=== PATIENT | female | born 1985 | race Caucasian/White ===

== ENCOUNTER 2016-10-30 09:17 | Day surgery (SDC) | payer BC ==
[~2016-10-30] VITALS: Ht 162.6 cm; Wt 74.8 kg
--- NOTE | ~2016-10-30 | OP ---
PATIENT NAME: HELENA RODRÍGUEZ MEDICAL RECORD: [id number] :83 LOCATION:[facility] ADMISSION DATE: SURGEON: SOPHIA BAUTISTA MD DATE OF OPERATION: 10/30/2016 PREOPERATIVE DIAGNOSIS: Chronic tonsillitis. POSTOPERATIVE DIAGNOSIS: Chronic tonsillitis. PROCEDURE: Tonsillectomy. SURGEON: Sophia Bautista MD ANESTHESIA: General orotracheal. BLOOD LOSS: Less than 5 cc. SPECIMENS: Right and left tonsil. COMPLICATIONS: None. DISPOSITION: Recovery stable. DESCRIPTION OF PROCEDURE: She was brought to the operating room and placed in supine position, sedated and intubated by anesthesia. The table was turned 90 degrees. Head drapes applied and she was positioned for tonsillectomy. Using a headlight, a Lorenzo-Sae mouth gag was carefully inserted and elevated on a towel on the chest. The palate was examined and palpated, it was normal. The palate was retracted. A mirror was used to examine the nasopharynx. There was no significant adenoid tissue. The choanae and eustachian tube orifices were normal bilaterally. The right tonsil was grasped at the superior pole with a straight Allis clamp. There was a massive amount of caseous material. A spatula tip cautery on a setting of 9 was used to dissect out the tonsil along its capsule, preserving the anterior and posterior tonsillar pillars. The left tonsil was removed in the same fashion. Then, both sides of the nose were irrigated with saline. The pharynx was suctioned. The tonsillar fossae were agitated. Suction cautery on a setting of 20 was used to control minimal oozing. With the field clean and dry, she was awakened, extubated, and transported to recovery in good condition. No complications. TRANSINT:[id number] Voice Confirmation ID: [id number] DOCUMENT ID: [id number] SOPHIA BAUTISTA MD CC: [id number] DICTATION DATE: 10/30/16 1429 TELEGRAPH REPEATER TECHNICIAN: 10/31/[address] [facility] 10/30/16 [facility] [address] [place] [address]
--- NOTE | ~2016-10-30 | HP ---
PATIENT: NITZA RODRÍGUEZ MEDICAL RECORD: [id number] ACCOUNT: [id number] LOCATION:[facility] : 84 ADMISSION DATE: 10/30/16 HISTORY AND PHYSICAL EXAMINATION Preoperative History and Physical HISTORY OF PRESENT ILLNESS: Nitza is a 31-year-old female with chronic problems with pharyngitis that has been an ongoing problem for many years. She is being admitted for tonsillectomy and adenoidectomy. PAST MEDICAL HISTORY: Includes seasonal allergies. PAST SURGICAL HISTORY: None. CURRENT MEDICATIONS: Xanax, Prozac, acyclovir, Zantac, Meloxicam and Latuda. ALLERGIES: No known drug allergies. PHYSICAL EXAMINATION: GENERAL: Healthy-appearing, developmentally normal. FACE: Normal, symmetric. No lesions. EYES: Sclerae and conjunctivae are normal. EARS: Canals are normal. The TMs are normal. NOSE: No mass, polyps, or drainage. ORAL CAVITY AND OROPHARYNX: 3+ caseous tonsils. NECK: No masses and no adenopathy. CHEST: Clear. CARDIOVASCULAR: Regular rate and rhythm. No murmur. EXTREMITIES: Normal. IMPRESSION: Chronic pharyngitis. PLAN: Tonsillectomy and adenoidectomy. TRANSINT:[id number] Voice Confirmation ID: [id number] DOCUMENT ID: [id number] SOPHIA ANGLIN MD CC: [id number] DICTATION DATE: 10/13/16 1112 ADJUNCT MATHEMATICS INSTRUCTOR: 10/13/16 1542 [facility] [address] [place] [address]
[~2016-10-30 09:17] MED LIST: BENADRYL25 MG PO; GALZIN25 MG PO; MAG-OXIDE400 MG PO; OS-CAL500 MG PO; PRENATAL COMPLE1 TAB PO; PROZAC20 MG PO; VITAMIN C1000 MG PO; ZANTAC300 MG PO; ZOVIRAX800 MG PO
[2016-10-30 11:05] LABS: HEMATOCRIT 39.1 % (36.0-48.0); HEMOGLOBIN 12.7 g/dL (12-16); MCHC 32.5 g/dL (31.0-37.0); MCV 92.2 fL (80.0-100.0); MEAN PLATELET VOLUME 8.6 fL (7.4-10.4); RBC 4.24 10x6/uL (4.00-5.40); RDW 12.6 % (11.5-14.5); WBC 6.6 10x3/uL (4.8-10.8)
[2016-10-30] MEDS ORDERED: XANAX1 MG PO (12:36)
[2016-10-30 12:45] VITALS: BP 102/60; Ht 162.6 cm; Wt 74.8 kg
[2016-10-30 13:10] LABS: HCG URINE NEGATIVE (NEGATIVE)
== END 2016-10-30 16:06 | disposition home or self-care (01) ==
LOC: D.OPS 09:17
PROVIDERS: Anesthesiology; Otolaryngology
DX: J35.01 Chronic tonsillitis (principal); J31.2 Chronic pharyngitis; J30.2 Other seasonal allergic rhinitis; Z79.1 Long term (current) use of non-steroidal anti-inflammatories (NSAID); Z79.899 Other long term (current) drug therapy